=== PATIENT | female | born 1965 | race Caucasian/White ===

== ENCOUNTER 2022-01-03 05:17 | Emergency (ER) | payer OTHER ==
[~2022-01-03] VITALS: Ht 167.6 cm; Wt 78.0 kg
== END 2022-01-03 10:52 | disposition home or self-care (01) ==
LOC: ER 05:17
DX: K80.20 Calculus of gallbladder without cholecystitis without obstruction (principal); N39.0 Urinary tract infection, site not specified; N28.1 Cyst of kidney, acquired; R16.0 Hepatomegaly, not elsewhere classified

== ENCOUNTER 2022-02-08 06:01 | Day surgery (SDC) | payer OTHER ==
[~2022-02-08] VITALS: Ht 167.6 cm; Wt 77.1 kg
== END 2022-02-08 11:45 | disposition home or self-care (01) ==
LOC: CIR.AMB 06:01
PROVIDERS: ATTEND Surgery
DX: K80.10 Calculus of gallbladder with chronic cholecystitis without obstruction (principal)

== ENCOUNTER 2024-10-07 08:07 | Inpatient (IN) | payer OTHER ==
[~2024-10-07] VITALS: Ht 167.6 cm; Wt 72.6 kg
[2024-10-07 09:01] VITALS: BP 139/83
[2024-10-07 09:14] VITALS: BP 136/84
[2024-10-07 10:00] LABS: RH POSITIVE
[2024-10-14] MEDS ORDERED: CEFAZOLIN SODIUM 1,000 MG VIAL ONE ×2 (11:39→17:03)
[2024-10-14] MEDS ORDERED: POVIDONE-IODINE 118 ML BOTT TOP ONE (13:45)
[2024-10-14] MEDS ORDERED: CEFAZOLIN SODIUM 1,000 MG VIAL IV SCH ×2 (13:45→18:00)
[2024-10-14] MEDS ORDERED: MORPHINE SULFATE 4 MG/ML VIAL IV PRN (15:15)
[2024-10-14] MEDS ORDERED: RINGERS SOLUTION,LACTATED 1,000 ML IV SCH (15:15)
[2024-10-14] MEDS ORDERED: MORPHINE SULFATE 4 MG/ML VIAL IV ONE ×2 (15:35→16:05)
[2024-10-14] MEDS ORDERED: MORPHINE SULFATE 4 MG,MORPHINE SULFATE 2 MG IV PRN (17:15)
[2024-10-14 18:42] LABS: HEMATOCRIT 35.5 % (36.0-45.00); MEAN CELL VOLUME 83.2 fL (80.00-100.00); MEAN CORPUSCULAR HEMOGLOBIN 28.2 pg (27.00-32.0); MEAN CORPUSCULAR HGB CONC 33.9 g/dl (32.0-36.0); PLATELET COUNT 212 K/uL (150-450); RED BLOOD COUNT 4.26 M/uL (4.00-6.00); RED CELL DISTRIBUTION WIDTH 13.8 % (11.5-14.5)
[2024-10-14 18:50] VITALS: BP 139/83
[2024-10-14] MEDS ORDERED: ONDANSETRON HCL 2 MG/ML VIAL IV SCH (21:00)
[2024-10-14 23:45] VITALS: BP 124/82
[2024-10-15 05:00] VITALS: BP 129/80
[2024-10-15] MEDS ORDERED: GABAPENTIN 300 MG CAPSULE PO PRN (07:15)
[2024-10-15] MEDS ORDERED: IBUprofen 800 MG TABLET PO PRN (07:15)
[2024-10-15] MEDS ORDERED: ENOXAPARIN SODIUM 40 MG/0.4 ML SYRINGE SUBCUTANEO SCH (09:00)
[2024-10-15 12:12] VITALS: BP 128/83
[2024-10-15 16:00] VITALS: BP 105/69
[2024-10-16 00:05] VITALS: BP 97/61
[2024-10-16] MEDS ORDERED: GABAPENTIN300 MG PO (06:21)
[2024-10-16] MEDS ORDERED: IBUPROFEN800 MG PO (06:21)
[2024-10-16 08:31] VITALS: BP 121/74
== END 2024-10-16 09:45 | disposition home or self-care (01) | DRG 743 ==
LOC: O/R 10-14 06:40 → OB/GYN 10-14 06:40 → SURH 10-14 08:15 → OB/GYN 10-14 15:41
PROVIDERS: ADMIT Obstetrics & Gynecology Gynecology; ATTEND Obstetrics & Gynecology Gynecology
PROC: 0UT70ZZ Resection of Bilateral Fallopian Tubes, Open Approach (ICD-10-PCS; 2024-10-14)
PROC: 0USG0ZZ Reposition Vagina, Open Approach (ICD-10-PCS; 2024-10-14)
PROC: 0UT90ZZ Resection of Uterus, Open Approach (ICD-10-PCS; principal; 2024-10-14 15:00)
DX: D25.2 Subserosal leiomyoma of uterus (principal); D27.0 Benign neoplasm of right ovary; D27.1 Benign neoplasm of left ovary; N85.02 Endometrial intraepithelial neoplasia [EIN]